=== PATIENT | female | born 1950 | race Caucasian/White ===

== ENCOUNTER 2017-06-28 08:13 | Outpatient (CLI) | payer MEDICARE ==
[2017-06-28 08:48] LABS: Bilirubin Negative (Negative); Blood, Urine Negative (Negative); Clarity Clear (Clear); Glucose, Urine (Dipstick) Negative (Negative); Leukocyte Negative (Negative); Nitrite Negative (Negative); Protein, Urine (Dipstick) Negative (Neg-Trace); Urobilinogen 0.2 mg/dL (0.2-1.0)
--- NOTE | 2017-06-28 08:56 | ULT ---
BILATERAL RENAL ULTRASOUND: Date: 06/28/17 COMPARISON: 09/30/16. HISTORY: Renal calculi. TECHNIQUE: Multiplanar Hamlin scale and color Doppler images were obtained in a renal ultrasound. FINDINGS: The kidneys are normal in echogenicity without evidence of hydronephrosis. There are calculi in the l eft kidney measuring up to 5.0 mm in size. These are nonobstructing. The kidneys measures 10.1 and 10 .2 cm in length on the right and left, respectively. Limited visualization of the urinary bladder is unremarkable. Both ureteral jets are visualized. IMPRESSION: Nonobstructing left renal calculi. POS: [facility]
--- NOTE | 2017-06-28 08:58 | RAD ---
TWO VIEWS ABDOMEN: Date: 06-28-17 History: Renal calculi. Follow up evaluation. Comparison: 09-30-16 FINDINGS: There is a moderate amount of retained fecal material again seen throughout the colon suggesting cons tipation. There are calcifications again overlying the pelvis bilaterally, likely related to phleboli ths. The majority of the renal shadows are obscured bilaterally. No obvious calculus is delineated on this exam overlying the expected course of the renal collecting systems or either ureter. Again note d is the small bone island in the left sacral ala. Degenerative changes are seen in the lower lumbar spine. No other interval change. IMPRESSION: 1. Limited evaluation of the renal shadows due to overlying retained fecal material in the colon. No obvious calculi are delineated on this exam. 2. Constipation. POS: [facility]
[2017-06-28 09:02] LABS: Anion Gap 12 mmol/L (10-20); BUN (Urea Nitrogen) 14 mg/dL (9.8-20.1); Calc. Creatinine Clearance 0 mL/min (70-130); Calcium 10.1 mg/dL (7.8-10.44); Carbon Dioxide 32 mmol/L (23-31); Chloride 104 mmol/L (98-107); Estimated GFR-MDRD 89; Glucose 62 mg/dL (80-115); Potassium 3.7 mmol/L (3.5-5.1); Sodium 144 mmol/L (136-145)
== END 2017-06-28 08:14 | disposition home or self-care (01) ==
LOC: SCSULT 08:13
PROVIDERS: ATTEND Urology
DX: N20.0 Calculus of kidney (principal); R31.29 Other microscopic hematuria
CPT/HCPCS: 36415; 74018; 76770; 80048; 81003; 87086; 88112

== ENCOUNTER 2017-07-12 14:31 | Outpatient (CLI) | payer MEDICARE | END 2017-07-12 14:32 | disposition home or self-care (01) | LOC: BICMAMMO 14:31 | PROVIDERS: ATTEND Family Medicine | DX: Z12.31 Encounter for screening mammogram for malignant neoplasm of breast (principal); Z80.3 Family history of malignant neoplasm of breast | CPT/HCPCS: 77063; 77067 ==

== ENCOUNTER 2018-05-08 07:41 | Outpatient (CLI) | payer MEDICARE ==
--- NOTE | 2018-05-08 09:29 | MRI ---
MRI LUMBAR SPINE NONCONTRAST: DATE: 05/08/2018 HISTORY: A 68-year-old female with low back pain and degenerative disk disease, M51.36. COMPARISON: 12/16/2009 FINDINGS: For the purposes of this report, it will be assumed that there are 5 lumbar-type vertebrae. The vert ebral body heights are maintained. There is severe disk space narrowing at L3-L4 and at L4-L5. The rest of the disk spaces are maintain ed. There are modic type I endplate marrow changes on the left side at L3-L4 and on the right side a t L4-L5. The modic type I changes at L3-L4 are new since the previous MRI. The degree of disk space narrowing is unchanged. The conus medullaris terminates at L1-L2. The findings by individual levels are as follows: T12-L1: Normal. L1-L2: Normal. L2-L3: Minimal disk bulge, otherwise normal. L3-L4: No central stenosis. Bilateral mild to moderate neural foraminal stenosis. Mild degenerativ e facet changes bilaterally. L4-L5: No central stenosis. Mild diffuse disk bulge. Moderate bilateral neural foraminal stenosis. Moderate bilateral degenerative facet changes. L5-S1: Generous caliber of spinal canal and thecal sac. Small central and bilateral paracentral dis k protrusion. Mild bilateral neural foraminal stenosis. Mild bilateral degenerative facet changes. No major interval change overall, other than the new modic type I changes at L3-L4. IMPRESSION: 1. Mild to moderate lumbar spondylosis, consisting of degenerative disk disease (severe disk space n arrowing) at L3-L4 and at L4-L5, and mild and moderate facet osteoarthrosis at lower levels. 2. No central spinal canal stenosis at any level. 3. Mild and moderate bilateral neural foraminal stenosis at the last three levels, worst at L4-L5 (m oderate). 4. Other than a greater degree of degenerative disk changes at L3-L4, there has been no major interv al change since 12/16/2009. GLENN Avila POS: [facility]
--- NOTE | 2018-05-08 09:43 | RAD ---
LEFT HIP TWO VIEWS: HISTORY: Pain. COMPARISON: None. FINDINGS: No fracture or malalignment. Small phleboliths in the pelvis. Mild enthesopathic changes of the lef t hamstring tendon. Moderate degenerative disease at L4-L5 and at L5-S1. Mild degeneration of the left SI joint. IMPRESSION: 1. Low grade degenerative changes. 2. No acute abnormality. POS: [facility]
== END 2018-05-08 07:42 | disposition home or self-care (01) ==
LOC: BICMRI 07:41
PROVIDERS: ATTEND Family Medicine
DX: M51.36 Other intervertebral disc degeneration, lumbar region (principal); M47.816 Spondylosis without myelopathy or radiculopathy, lumbar region
CPT/HCPCS: 72148

== ENCOUNTER 2018-07-11 10:34 | Outpatient (CLI) | payer MEDICARE ==
--- NOTE | 2018-07-11 11:24 | ULT ---
Exam: Bilateral renal ultrasound HISTORY: History of renal calculi COMPARISON: Renal ultrasound dated June 28, 2017 FINDINGS: Right kidney: Normal cortical echotexture. No hydronephrosis. Right kidney measurements: The right kidney measured 10.7 x 5.2 x 5.2 cm. The right renal cortical th ickness was 2.3 cm. Left kidney: Normal cortical echotexture. No hydronephrosis. There is a small echogenic focus seen wi thin the superior mid aspect of the anterior left renal sinus likely reflecting a tiny stone. This was seen on the prior examination. This measures approximately 3 mm. Left kidney measurements: The left kidney measures 11 x 5.1 x 5.2 cm. The left renal cortical thickne ss is 1.8 cm. Urinary bladder: The prevoid bladder volume is 240 cc. The bladder sonographically appear normal. IMPRESSION: Stable left nephrolithiasis. No hydronephrosis.
--- NOTE | 2018-07-11 11:48 | RAD ---
KUB: COMPARISON: None. HISTORY: Renal calculi. FINDINGS: An anterior view of the abdomen shows a nonspecific, nonobstructed bowel gas pattern. Stable phlebol iths are seen in the pelvis. No calcifications are seen over either renal shadow or along the course of the ureters. Degenerative changes are seen in the lower lumbosacral spine. IMPRESSION: No renal calculi identified. POS: [facility]
== END 2018-07-11 10:35 | disposition home or self-care (01) ==
LOC: BICULT 10:34
PROVIDERS: ATTEND Urology
DX: N20.0 Calculus of kidney (principal)
CPT/HCPCS: 74018; 76770

== ENCOUNTER 2018-08-01 15:15 | Outpatient (CLI) | payer MEDICARE ==
--- NOTE | 2018-08-01 15:58 | MMO ---
Bilateral MAMMO Bilat Screen [facility]. CLINICAL HISTORY: Patient is 68 years old and is seen for screening. The patient has the following family history of breast cancer: paternal aunt. The patient has no personal history of cancer. The patient has a history of bilateral Excisional Biopsy - benign. VIEWS: The views performed were: bilateral craniocaudal with tomosynthesis and bilateral mediolateral oblique with tomosynthesis. FILMS COMPARED: The present examination has been compared to prior imaging studies performed at [facility] on 04/23/2014, 11/21/2014, 05/07/2015, 05/10/2016 and 07/12/2017. MAMMOGRAM FINDINGS: There are scattered fibroglandular densities. There are no suspicious masses, suspicious calcifications, or new areas of architectural distortion. IMPRESSION: THERE IS NO MAMMOGRAPHIC EVIDENCE OF MALIGNANCY. A ROUTINE FOLLOW-UP MAMMOGRAM IN 1 YEAR IS RECOMMENDED. THE RESULTS OF THIS EXAM WERE SENT TO THE PATIENT. ACR BI-RADS Category 1 - Negative MAMMOGRAPHY NOTE: 1. A negative mammogram report should not delay a biopsy if a dominant of clinically suspicious mass is present. 2. Approximately 10% to 15% of breast cancers are not detected by mammography. 3. Adenosis and dense breasts may obscure an underlying neoplasm.
== END 2018-08-01 15:16 | disposition home or self-care (01) ==
LOC: BICMAMMO 15:15
PROVIDERS: ATTEND Family Medicine
DX: Z12.31 Encounter for screening mammogram for malignant neoplasm of breast (principal); Z80.3 Family history of malignant neoplasm of breast
CPT/HCPCS: 77063; 77067

== ENCOUNTER 2020-02-21 11:16 | Outpatient (CLI) | payer MEDICARE ==
--- NOTE | 2020-02-21 11:37 | RAD ---
TWO VIEW CHEST: HISTORY: Shortness of breath. FINDINGS: Lung pool appear clear of infiltrate. Vascular markings normal. Mild increased interstitial daniel ngs. Heart size upper normal. Osseous structures unremarkable. IMPRESSION: No evidence of acute process. POS: [facility]
== END 2020-02-21 11:17 | disposition home or self-care (01) ==
LOC: BICRAD 11:16
PROVIDERS: ATTEND Internal Medicine Cardiovascular Disease
DX: R06.02 Shortness of breath (principal)
CPT/HCPCS: 71046

== ENCOUNTER 2020-03-27 13:16 | Outpatient (CLI) | payer MEDICARE ==
--- NOTE | 2020-03-27 14:01 | RAD ---
CHEST 1 VIEW AND ABDOMEN 2 VIEWS: HISTORY: Shortness of breath for months and abdominal pain for 3 weeks. COMPARISON: Chest x-ray 02/21/2020. FINDINGS: Heart size is normal. Stable increased bronchovascular markings noted bilaterally. No confluent pne umonia, overt edema, or pleural effusion. In the abdomen, there is gas and fecal material in the colon. No evidence for overt renal calculi dem onstrated. No free intraperitoneal air. No bowel obstruction. IMPRESSION: Unremarkable abdomen 2 views. POS: [facility]
== END 2020-03-27 13:17 | disposition home or self-care (01) ==
LOC: BICRAD 13:16
PROVIDERS: ATTEND Family Medicine
DX: R10.9 Unspecified abdominal pain (principal)
CPT/HCPCS: 74022

== ENCOUNTER 2020-05-12 10:50 | Outpatient (CLI) | payer MEDICARE ==
--- NOTE | 2020-05-12 11:23 | RAD ---
EXAM: Chest PA and lateral: HISTORY: Dyspnea COMPARISON: 02/21/2020 FINDINGS: Heart: Normal cardiac silhouette Aorta: Atherosclerosis Pulmonary vessels: Normal Costophrenic angles: Costophrenic angles are clear. Lungs: No consolidation or masses. Hyperinflation with chronic changes. Pneumothorax: No pneumothorax Osseous structures: No osseous abnormalities IMPRESSION: No acute cardiopulmonary process. Atherosclerosis.
== END 2020-05-12 10:51 | disposition home or self-care (01) ==
LOC: BICRAD 10:50
PROVIDERS: ATTEND Internal Medicine Critical Care Medicine
DX: R06.00 Dyspnea, unspecified (principal); I70.0 Atherosclerosis of aorta
CPT/HCPCS: 71046

== ENCOUNTER 2020-07-01 08:51 | Outpatient (CLI) | payer MEDICARE | END 2020-07-01 08:52 | disposition home or self-care (01) | LOC: BICMAMMO 08:51 | PROVIDERS: ATTEND Family Medicine | DX: Z12.31 Encounter for screening mammogram for malignant neoplasm of breast (principal); Z80.3 Family history of malignant neoplasm of breast | CPT/HCPCS: 77063; 77067 ==

== ENCOUNTER 2020-08-21 11:00 | Outpatient (CLI) | payer MEDICARE | END 2020-08-21 11:01 | disposition home or self-care (01) | LOC: BICULT 11:00 | PROVIDERS: ATTEND Family Medicine | DX: R10.9 Unspecified abdominal pain (principal) | CPT/HCPCS: 93975 ==

== ENCOUNTER 2020-09-18 12:40 | Outpatient (CLI) | payer MEDICARE | END 2020-09-18 12:41 | disposition home or self-care (01) | LOC: NM 12:40 | PROVIDERS: ATTEND Physician Assistant Medical | DX: R10.13 Epigastric pain (principal) | CPT/HCPCS: 78227; A9537 ==

== ENCOUNTER 2020-10-23 08:46 | Outpatient (CLI) | payer MEDICARE | END 2020-10-23 08:47 | disposition home or self-care (01) | LOC: RAD 08:46 | PROVIDERS: ATTEND Physician Assistant Medical | DX: R10.13 Epigastric pain (principal); K44.9 Diaphragmatic hernia without obstruction or gangrene; K21.9 Gastro-esophageal reflux disease without esophagitis | CPT/HCPCS: 74246 ==

== ENCOUNTER 2020-11-09 08:46 | Outpatient (CLI) | payer MEDICARE ==
[2020-11-09] MEDS ORDERED: Iopamidol-370 76% 500 ML 1 ML ONE (15:05)
[2020-11-10 08:23] LABS: Estimated GFR-MDRD - POC Greater than 90
== END 2020-11-09 08:47 | disposition home or self-care (01) ==
LOC: BICCT 08:46
PROVIDERS: ATTEND Physician Assistant Medical
DX: R10.13 Epigastric pain (principal); K76.9 Liver disease, unspecified
CPT/HCPCS: 74160; 82565; Q9967

== ENCOUNTER 2020-12-08 08:19 | Outpatient (CLI) | payer MEDICARE ==
[2020-12-08] MEDS ORDERED: Iopamidol 370 76% 100 ML VIAL ONE (11:39)
== END 2020-12-08 08:20 | disposition home or self-care (01) ==
LOC: CT 08:19
PROVIDERS: ATTEND Family Medicine
DX: K55.059 Acute (reversible) ischemia of intestine, part and extent unspecified (principal); K59.00 Constipation, unspecified; K76.89 Other specified diseases of liver
CPT/HCPCS: 74174; 82565

== ENCOUNTER 2020-12-11 08:56 | Outpatient (CLI) | payer MEDICARE ==
[2020-12-11 12:04] LABS: #Eosinphils 0.1 10x3/uL (0.0-0.5); #Monocytes 0.3 10x3/uL (0.0-1.1); #Neutrophils 2.1 10x3/uL (1.5-8.4); %Basophils 0.7 % (0.0-2.0); %Eosinophils 2.8 % (0.0-6.0); %Lymphocytes 40.2 % (18.0-47.0); %Monocytes 6.9 % (0.0-10.0); %Neutrophils 49.2 % (40.0-75.0); Anion Gap 13 mmol/L (10-20); BUN (Urea Nitrogen) 8 mg/dL (9.8-20.1); Calc. Creatinine Clearance 0 mL/min (70-130); Carbon Dioxide 27 mmol/L (23-31); Chloride 107 mmol/L (98-107); Hemoglobin 14.6 g/dL (12.0-15.5); Mean Corpuscular Hemoglobin 29.9 pg (27.0-33.0); Mean Corpuscular Volume 90.4 fl (81.6-98.3); Mean Platelet Volume 9.2 fl (7.4-10.4); Platelet Count 187 10x3/uL (150-450); Potassium 4.3 mmol/L (3.5-5.1); RBC Distribution Width 12.4 % (11.5-14.5); Red Blood Cell (RBC) Count 4.89 10x6/uL (3.90-5.03); Sodium 143 mmol/L (136-145); White Blood Cell (WBC) Count 4.2 10x3/uL (3.5-10.5)
[2020-12-11 12:05] LABS: ALT (SGPT) 19 U/L (8-55); AST (SGOT) 23 U/L (5-34); Albumin 4.4 g/dL (3.4-4.8); Alkaline Phosphatase 54 U/L (40-110); Bilirubin, Direct 0.3 mg/dL (0.1-0.3); Bilirubin, Total 1.1 mg/dL (0.2-1.2); Calcium 10.5 mg/dL (7.8-10.44); Globulin 2.2 g/dL (2.4-3.5); Glucose 78 mg/dL (83-110); Protein, Total 6.6 g/dL (5.8-8.1)
[2020-12-12 12:57] LABS: SARS-CoV-2 PCR by NAA Not Detected (NotDetected)
== END 2020-12-11 08:57 | disposition home or self-care (01) ==
LOC: LABBT 08:56
PROVIDERS: ATTEND Surgery
DX: Z01.818 Encounter for other preprocedural examination (principal); K81.1 Chronic cholecystitis; Z20.822 Contact with and (suspected) exposure to COVID-19
CPT/HCPCS: 80053; 80076; 85025; 93005; U0003; U0005; 93010

== ENCOUNTER 2020-12-16 06:00 | Day surgery (SDC) | payer MEDICARE ==
[2020-12-16] MEDS ORDERED: cefOXitin Sodium/Dextrose 2 GM/50 ML BAG ONE (06:09)
[2020-12-16] MEDS ORDERED: HYDROmorphone 2 MG/ML VIAL ONE (06:22)
[2020-12-16] MEDS ORDERED: Phenylephrine 10 MG/ML VIAL ONE (06:22)
[2020-12-16] MEDS ORDERED: Fentanyl 100 MCG/2 ML VIAL ONE ×2 (06:22→08:42)
[2020-12-16] MEDS ORDERED: Bupivacaine 0.25% HCL 30 ML VIAL ONE (06:47)
[2020-12-16] MEDS ORDERED: EPINEPHrine 1 MG/ML AMP ONE (06:47)
[2020-12-16] MEDS ORDERED: Glycopyrrolate 0.2 MG/ML 5 ML SYRINGE ONE (07:31)
[2020-12-16] MEDS ORDERED: ePHEDrine 50 MG/ML VIAL ONE (07:31)
[2020-12-16] MEDS ORDERED: Lidocaine 1% PF 5 ML VIAL ONE (07:31)
[2020-12-16] MEDS ORDERED: Dexamethasone 20 MG/5 ML VIAL ONE (07:31)
[2020-12-16] MEDS ORDERED: PHENYLEPHRINE-NS 100 MCG/ML 10 ML SYRINGE ONE (07:31)
[2020-12-16] MEDS ORDERED: PROPOFOL 200 MG/20 ML VIAL ONE (07:31)
[2020-12-16] MEDS ORDERED: Ondansetron PF 4 MG/2 ML Vial ONE (07:31)
[2020-12-16] MEDS ORDERED: Rocuronium Bromide 10 MG/ML (10ML VIAL) ONE (07:31)
[2020-12-16] MEDS ORDERED: Ketorolac Tromethamine 30 MG/ML VIAL ONE (07:31)
== END 2020-12-16 10:20 | disposition home or self-care (01) ==
LOC: SDC 06:00
PROVIDERS: ATTEND Surgery
PROC: 0FT44ZZ Resection of Gallbladder, Percutaneous Endoscopic Approach (ICD-10-PCS; principal; 2020-12-16)
DX: K80.10 Calculus of gallbladder with chronic cholecystitis without obstruction (principal); K82.8 Other specified diseases of gallbladder; E03.9 Hypothyroidism, unspecified; I10 Essential (primary) hypertension; Z79.899 Other long term (current) drug therapy
CPT/HCPCS: 88304; J0171; J0694; J1100; J1170; J1885; J2370; J2405; J2704; J3010; J3490; S0020

== ENCOUNTER 2022-11-10 15:40 | Observation (INO) | payer MEDICARE ==
[2022-11-10 17:10] VITALS: BMI 21.6
[2022-11-10 18:36] LABS: Hemoglobin A1c 4.9 % (4.0-6.0)
[2022-11-10 18:53] LABS: Cardiac Risk 2.5 (Less than 4.5)
[2022-11-11 06:42] LABS: #Eosinphils 0.2 thou/uL (0.0-0.7); #Monocytes 0.3 thou/uL (0.11-0.59); #Neutrophils 2.2 thou/uL (1.40-6.50); %Basophils 0.9 % (0.0-1.0); %Eosinophils 4.7 % (0.0-10.0); %Lymphocytes 40.9 % (21.0-51.0); %Monocytes 7.3 % (0.0-10.0); Hematocrit 44.3 % (36.0-47.0); Hemoglobin 15.1 g/dL (12.0-16.0); Mean Corpuscular HGB CONC 34.1 g/dL (32.0-36.0); Mean Corpuscular Hemoglobin 30.6 pg (27.0-31.0); Mean Corpuscular Volume 89.9 fl (78.0-98.0); Mean Platelet Volume 8.7 fL (7.4-10.4); Platelet Count 151 10x3/uL (130-400); RBC Distribution Width 12.5 % (11.5-14.5); Red Blood Cell (RBC) Count 4.93 mill/uL (4.20-5.40); White Blood Cell (WBC) Count 4.7 10x3/uL (4.8-10.8)
[2022-11-11 07:05] LABS: Anion Gap 8 mmol/L (10-20); BUN (Urea Nitrogen) 12 mg/dL (9.8-20.1); Calc. Creatinine Clearance 62 mL/min (70-130); Carbon Dioxide 27 mmol/L (23-31); Chloride 108 mmol/L (98-107); Estimated GFR 78; Glucose 91 mg/dL (83-110); Potassium 4.2 mmol/L (3.5-5.1); Sodium 139 mmol/L (136-145)
[2022-11-11] MEDS ORDERED: Ascorbic Acid 500 mg Chewable Tablet PO SCH (09:00)
[2022-11-11] MEDS ORDERED: Magnesium Oxide 400 MG TAB PO SCH (09:00)
[2022-11-11] MEDS ORDERED: Fish Oil 1,000 MG CAP PO SCH (09:00)
[2022-11-11] MEDS ORDERED: TESTOSTERONE PO SCH (09:00)
[2022-11-11] MEDS ORDERED: Floranex 1 GM Packet PO SCH (09:00)
[2022-11-11] MEDS ORDERED: Multivits W-Minerals Liquid 15 ML LIQ PO SCH (09:00)
[2022-11-11] MEDS ORDERED: Cholecalciferol 1,000 UNITS (25 MCG) TAB PO SCH (09:00)
[2022-11-11] MEDS ORDERED: Aspirin 81 mg Enteric Coated Tablet PO SCH (09:00)
[2022-11-11] MEDS ORDERED: ESTROGEN ESTER PO SCH (09:00)
[2022-11-11] MEDS ORDERED: Regadenoson 0.4 MG/5 ML SYRINGE ONE (13:29)
[2022-11-11 16:14] VITALS: BP 137/88; TEMP 97.7
== END 2022-11-11 17:37 | disposition home or self-care (01) ==
LOC: 2SW 16:27
PROVIDERS: ADMIT Family Medicine; ATTEND Family Medicine
DX: I20.8 Other forms of angina pectoris (principal); E03.9 Hypothyroidism, unspecified; R73.9 Hyperglycemia, unspecified; Z79.890 Hormone replacement therapy; Z79.899 Other long term (current) drug therapy; Z90.49 Acquired absence of other specified parts of digestive tract; Z90.89 Acquired absence of other organs; Z90.710 Acquired absence of both cervix and uterus; Z95.1 Presence of aortocoronary bypass graft
CPT/HCPCS: 78452; 80048; 80061; 83036; 84443; 85025; 93017; A9500; J2785; 36415; G0378

== ENCOUNTER 2023-07-27 15:22 | Outpatient (CLI) | payer MEDICARE | END 2023-07-27 15:23 | disposition home or self-care (01) | LOC: BICRAD 15:22 | PROVIDERS: ATTEND Family Medicine | DX: M54.50 Low back pain, unspecified (principal); M47.816 Spondylosis without myelopathy or radiculopathy, lumbar region; M51.36 Other intervertebral disc degeneration, lumbar region | CPT/HCPCS: 72100 ==

== ENCOUNTER 2024-02-07 15:00 | Outpatient (CLI) | payer MEDICARE | END 2024-02-07 15:01 | disposition home or self-care (01) | LOC: BICMAMMO 15:00 | PROVIDERS: ATTEND Family Medicine | DX: Z12.31 Encounter for screening mammogram for malignant neoplasm of breast (principal); M81.0 Age-related osteoporosis without current pathological fracture; M85.851 Other specified disorders of bone density and structure, right thigh; M85.852 Other specified disorders of bone density and structure, left thigh; Z91.89 Other specified personal risk factors, not elsewhere classified; Z80.3 Family history of malignant neoplasm of breast | CPT/HCPCS: 77063; 77067; 77080 ==

== ENCOUNTER 2024-10-11 10:44 | Outpatient (CLI) | payer MEDICARE | END 2024-10-11 10:45 | disposition home or self-care (01) | LOC: BICRAD 10:44 | PROVIDERS: ATTEND Family Medicine | DX: M25.561 Pain in right knee (principal); M17.11 Unilateral primary osteoarthritis, right knee ==

== ENCOUNTER 2025-02-05 08:37 | Outpatient (CLI) | payer MEDICARE | END 2025-02-05 08:38 | disposition home or self-care (01) | LOC: RAD 08:37 | PROVIDERS: ATTEND Internal Medicine Critical Care Medicine | DX: R06.00 Dyspnea, unspecified (principal); R91.8 Other nonspecific abnormal finding of lung field; M47.813 Spondylosis without myelopathy or radiculopathy, cervicothoracic region | CPT/HCPCS: 71046 ==

== ENCOUNTER 2025-02-12 10:23 | Outpatient (CLI) | payer MEDICARE | END 2025-02-12 10:24 | disposition home or self-care (01) | LOC: BICMAMMO 10:23 | PROVIDERS: ATTEND Family Medicine | DX: Z12.31 Encounter for screening mammogram for malignant neoplasm of breast (principal); Z80.3 Family history of malignant neoplasm of breast; Z91.89 Other specified personal risk factors, not elsewhere classified | CPT/HCPCS: 77063; 77067 ==